=== PATIENT | male | born 2000 | race Caucasian/White ===

== ENCOUNTER 2019-02-07 21:13 | Emergency (ER) | payer MEDICAID ==
--- NOTE | 2019-02-07 22:22 | CRLCR ---
INDICATION: Thumb injury swelling and pain started 5 days ago TECHNIQUE: Hand radiograph 3 views right COMPARISON: None FINDINGS: Bone: No acute fractures or aggressive bone lesions are identified. Joint: The carpal and metacarpal-phalangeal joints are unremarkable in appearance. The interphalangeal joints are normal in appearance. Soft tissue: Unremarkable. No radiopaque foreign bodies are seen. IMPRESSION: 1. No acute osseous injuries or abnormalities are noted. Dictated by: Colt Zapien MD @ 02/07/2019 22:19:39 (Electronically Signed)
--- NOTE | 2019-02-07 22:50 | EDM.PDOC ---
ED HPI GENERAL MEDICAL PROBLEM - General Chief Complaint: Upper Extremity Injury/Pain Stated Complaint: HURT RIGHT THUMB Time Seen by Provider: 02/07/19 21:35 Source of Information: Reports: Patient, Family (mother at bedside and gives majority of history) History Limitations: Reports: No Limitations - History of Present Illness INITIAL COMMENTS - FREE TEXT/NARRATIVE: Alert 18-year-old male presents with his mother for evaluation of right thumb pain. Patient does not recall an injury. He has had increased swelling and pain with use of the right thumb. Mother presents with him at bedside states they've been icing wrapping and taking ibuprofen with continued swelling and discomfort. The symptoms started approximately 5 days ago. Patient does not recall any specific injury. Patient is left handed but has good use of right hand. He has increased pain with movement of the thumb. No lacerations or open wounds noted. 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 ED EXAM, GENERAL - Physical Exam Exam: See Below Exam Limited By: No Limitations General Appearance: Alert, WD/WN, No Apparent Distress Ears: Normal External Exam, Hearing Grossly Normal Nose: Normal Inspection Throat/Mouth: Normal Inspection Head: Normocephalic Neck: Normal Inspection, Full Range of Motion Respiratory/Chest: No Respiratory Distress Cardiovascular: Normal Peripheral Pulses Peripheral Pulses: 4+: Radial (R) GI/Abdominal: Normal Bowel Sounds Extremities: Normal Inspection, Normal Range of Motion, Non-Tender, No Pedal Edema, Normal Capillary Refill, Arm Pain (Right Hand swelling noted over thenar eminence with bruising and pain to palpation. Focal pain over first MCP joint. pain jm pincher grasping) Neurological: Alert, Oriented, CN II-XII Intact, Normal Cognition, Normal Gait Psychiatric: Normal Affect, Normal Mood, Flat Affect (mother answers most questions) Skin Exam: Warm, Dry Course - Vital Signs Last Recorded V/S: Last Vital Signs Temp 35.9 C 02/07/19 22:24 Pulse 76 02/07/19 22:24 Resp 16 02/07/19 22:24 BP 142/43 H 02/07/19 22:24 Pulse Ox 98 02/07/19 22:24 Departure - Departure Time of Disposition: 23:04 Disposition: Home, Self-Care 01 Clinical Impression: Strain of thumb, right - Discharge Information Instructions: Ulnar Collateral Ligament Injury of the Thumb, Thumb Sprain Referrals: PCP,None [Primary Care Provider] - Dwayne Garcia MD [Physician] - 1 Week (Call Orthopedic clinic on Saturday for follow-up appointment in 7-10 days for repeat evaluation if not improving. ) Forms: ED Department Discharge Additional Instructions: 1. Ice 15-20 minutes 3-4 times per day. 2. Leave splint in place at all times. Keep clean and dry. If removable, may remove to shower. 3. Ibuprofen 800mg every 6 hours with food for pain swelling and inflammation. 4. Call PCP for recheck in 1-2 weeks for splint removal and ensure improving. 5. Read thumb strain information (thenar strain collateral ligament injury information given. 6. Note for work written. You have no limitation using left hand. Right hand limitations of splint.
== END 2019-02-07 23:06 | disposition home or self-care (01) ==
LOC: JP.ED 21:13
DX: S66.011A Strain of long flexor muscle, fascia and tendon of right thumb at wrist and hand level, initial encounter (principal); F17.210 Nicotine dependence, cigarettes, uncomplicated; X58.XXXA Exposure to other specified factors, initial encounter
CPT/HCPCS: 29125; 73130-RT; 99283-25

== ENCOUNTER 2019-02-10 14:44 | Day surgery (SDC) | payer MEDICAID ==
[~2019-02-10 14:44] MED LIST: Bupivacaine 0.5% 50 ML MDV ONE
[2019-02-10] MEDS ORDERED: Lactated Ringers 1,000 ML IV SCH ×2 (15:45→17:45)
[2019-02-10] MEDS ORDERED: Propofol 200 MG/20 ML SDV ONE ×2 (16:06)
[2019-02-10] MEDS ORDERED: fentaNYL 100 MCG/2 ML SDV ONE ×2 (16:06→17:05)
[2019-02-10] MEDS ORDERED: Midazolam 1 MG/ML 2 ML SDV ONE (16:06)
[2019-02-10] MEDS ORDERED: ceFAZolin 2 GM in Premix Bag 1 BAG IV ONE (16:45)
[2019-02-10] MEDS ORDERED: Acetaminophen/HYDROcodone 325-5 MG Tab PO PRN (17:35)
[2019-02-10] MEDS ORDERED: Morphine 2 MG/ML Syringe IVPUSH PRN (17:36)
[2019-02-10] MEDS ORDERED: Acetaminophen 325 MG Tab PO PRN (17:37)
[2019-02-10] MEDS: Acetaminophen/oxyCODONE 325-5 MG Tab PO PRN ×2 (18:09→22:12)
[2019-02-10] MEDS ORDERED: ceFAZolin 1 GM Vial ONE (23:36)
[2019-02-10] MEDS ORDERED: Sodium Chloride 0.9% 50 ML ONE (23:37)
[2019-02-11] MEDS: ceFAZolin 1 GM in Premix Bag 1 BAG IV SCH ×3 (00:28→16:55)
[2019-02-11] MEDS: Acetaminophen/oxyCODONE 325-5 MG Tab PO PRN ×3 (05:13→14:38)
[2019-02-11] MEDS ORDERED: Diphtheria,Pertussis(Acell),Tetanus Vaccine 0.5 ML SDV IM ONE (10:00)
[2019-02-11] MEDS ORDERED: Cephalexin 250 MG Cap PO SCH (13:00)
--- NOTE | 2019-02-18 20:18 | OR ---
DATE OF PROCEDURE: 02/10/2019 PREOPERATIVE DIAGNOSIS: Infection thumb, right hand. POSTOPERATIVE DIAGNOSIS: Soft tissue infection over right thumb. PROCEDURE PERFORMED: Irrigation and debridement, right hand. ANESTHESIA: General. INDICATION: Kristian is a 18-year-old, who presented to the emergency room approximately 2 days ago with increasing right thumb pain. No injury was noted. He was placed into a splint and arrangement was made for followup. He has been having increasing pain in the splint. He is seen earlier today in the clinic due to the persistent pain. After removal of the splint, it was noted that he had significant redness and erythema in the palm aspect of his right hand near the MCP joint of the thumb. It is consistent with an infection of the right hand and possible infection of the MCP joint. Arrangements were made for surgery later the same day for irrigation and debridement. He is now admitted for that. Risks, benefits, potential complications were discussed with Kristian and his mother. DESCRIPTION OF PROCEDURE: After adequate anesthesia was obtained, right hand was prepped and draped in a sterile fashion. A longitudinal incision was made directly over the area of apparent abscess. It was carried down through the subcutaneous tissue. Immediately upon entering the subcutaneous tissue, grossly purulent material was present. This was expressed and cultured. This was then thoroughly irrigated. Minor debridement of subcutaneous tissue was performed with scissors. Blunt dissection carried out into the palm area where the abscess was tracking. This was thoroughly irrigated as well. Irrigated with a combination of initial normal saline and then Betadine diluted with saline. After all grossly purulent material was irrigated, the wound was further inspected. There was no evidence of tracking into the finger flexors. There was also no evidence of a sinus tracking down into the MCP joint. The wound was irrigated once again and then lightly packed with iodoform gauze. Sterile dressing was placed over this and then wrapped with gauze and Lloyd bandage. The patient tolerated the procedure well. There were no complications. He was taken from the operating room in a stable condition. Dwayne Garcia MD /[id number]
== END 2019-02-11 18:05 | disposition home or self-care (01) ==
LOC: JP.SDS 14:44 → JP.MS 17:50 → JP.SDS 02-11 18:05
PROVIDERS: ATTEND Specialist
DX: L02.511 Cutaneous abscess of right hand (principal); F17.200 Nicotine dependence, unspecified, uncomplicated
CPT/HCPCS: 26011; 36415; 80048; 85027; 87070; 87075; 87077; 87186; 87205; 90471; 90715; A9270; J0690; J2250; J2704; J3010; J3490; J7120

== ENCOUNTER 2021-07-25 18:10 | Emergency (ER) | payer MEDICAID ==
[2021-07-25] MEDS ORDERED: Famotidine 20 MG Tab PO ONE (19:59)
[2021-07-25] MEDS ORDERED: Ondansetron 4 MG Tab.DIS PO ONE (19:59)
[2021-07-25 21:17] LABS: CORONAVIRUS COVID-19 NAA NEGATIVE (NEGATIVE)
--- NOTE | 2021-07-25 21:43 | EDM.PDOC ---
ED HPI GENERAL MEDICAL PROBLEM - General Chief Complaint: Abdominal Pain Stated Complaint: ABD PAIN Time Seen by Provider: 07/25/21 19:18 Source of Information: Reports: Patient History Limitations: Reports: No Limitations - History of Present Illness INITIAL COMMENTS - FREE TEXT/NARRATIVE: Patient presents emergency room secondary to abdominal pain stomach pain x3 days. He reports that he is having diarrhea greater than 10 stools today have been present does have some nausea but denies any vomiting he also reports he has been having dry heaves. He states that he is dizzy when he is up but up and about but when he is sitting and still does not have any dizzy or lightheaded sensation he states that he is drank about 2 water bottles and up today has not been able to eat denies any UTI symptoms he does report having had a headache he says he has chills yesterday he had no fever today he did take his temperature and he states that it was normal. Patient also states that he took Pepto x1 today it did not really seem to help PMH/Meds--denies NKDA Tob--1/2 ppd EtOH--rare Drugs--denies Patient denies having had COVID nor has he had his COVID immunization Abdomen Pain Score (Numeric/FACES): 6 - Related Data Allergies Allergy/AdvReac Type Severity Reaction Status Date / Time No Known Allergies Allergy Verified 04/26/19 08:30 Home Meds: Home Meds NK [No Known Home Meds] 07/25/21 [History] Past Medical History - Past Health History Medical/Surgical History: Denies Medical/Surgical History HEENT History: Reports: Impaired Vision Cardiovascular History: Reports: None Respiratory History: Reports: None Gastrointestinal History: Reports: None Genitourinary History: Reports: None Musculoskeletal History: Reports: Fracture Other Musculoskeletal History: L distal fib Dx Ed 04/26/19 (occurred 04/25/19. right thumb pain Neurological History: Reports: None Psychiatric History: Reports: None Endocrine/Metabolic History: Reports: None Hematologic History: Reports: None Immunologic History: Reports: None Oncologic (Cancer) History: Reports: None Dermatologic History: Reports: None - Infectious Disease History Infectious Disease History: Reports: MRSA - Past Surgical History Head Surgeries/Procedures: Reports: None HEENT Surgical History: Reports: None Musculoskeletal Surgical History: Reports: None Social & Family History - Family History Family Medical History: No Pertinent Family History - Tobacco Use Tobacco Use Status *Q: Current Every Day Tobacco User Years of Tobacco use: 3 Packs/Tins Daily: 0.5 - Caffeine Use Caffeine Use: Reports: Soda - Recreational Drug Use Recreational Drug Use: No ED ROS GENERAL - Review of Systems Review Of Systems: Comprehensive ROS is negative, except as noted in HPI. Constitutional: Reports: Chills, Decreased Appetite GI/Abdominal: Reports: Abdominal Pain, Diarrhea, Decreased Appetite, Nausea. Denies: Vomiting : Reports: No Symptoms Neurological: Reports: Dizziness, Headache ED EXAM, GENERAL - Physical Exam Exam: See Below Exam Limited By: No Limitations General Appearance: Alert, WD/WN, No Apparent Distress Eye Exam: Bilateral Eye: EOMI, Normal Inspection, PERRL Ears: Normal External Exam, Hearing Grossly Normal Nose: Normal Inspection Throat/Mouth: Normal Inspection, Normal Oropharynx, Normal Voice, No Airway Compromise Head: Atraumatic, Normocephalic Neck: Normal Inspection, Supple, Non-Tender, Full Range of Motion Respiratory/Chest: No Respiratory Distress, Lungs Clear, Normal Breath Sounds, Chest Non-Tender Cardiovascular: Normal Peripheral Pulses, Regular Rate, Rhythm, No Edema, No Murmur Peripheral Pulses: 2+: Radial (L), Radial (R) GI/Abdominal: Normal Bowel Sounds, Soft, Non-Tender, No Distention (Male) Exam: Deferred Rectal (Males) Exam: Deferred Back Exam: Normal Inspection, Full Range of Motion Extremities: Normal Inspection, Normal Range of Motion, No Pedal Edema, Normal Capillary Refill Neurological: Alert, Oriented, Normal Cognition, No Motor/Sensory Deficits Psychiatric: Normal Affect, Normal Mood Skin Exam: Warm, Dry, Intact, Normal Color, No Rash Course - Vital Signs Text/Narrative:: Patient was offered labs as well as IV fluids and IV medication secondary to nausea dry heaves dizziness. At this time he declines he states that he would only like to have a Covid test and a work excuse. Provide patient with requested test and discharge home with appropriate work excuse based on findings Covid positive he will need to be home quarantine self-isolation for 10 to 14 days. Will provide Zofran for nausea for home use may use [id number] Imodium prior to diarrheal as needed encouraged increased fluids to include water or juice sports drinks of choice patient verbalized understanding agree with plan of care Laboratory Tests 07/25/21 20:31 Influenza Type A RNA Negative Influenza Type B RNA Negative SARS-CoV-2 RNA ([facility]) Negative Last Recorded V/S: Last Vital Signs Temp 98.2 F 07/25/21 19:16 Pulse 87 07/25/21 19:16 Resp 16 07/25/21 19:16 BP 138/87 07/25/21 19:16 Pulse Ox 96 07/25/21 19:16 - Orders/Labs/Meds Orders: Active Orders 24 hr Category Date Time Status Isolation [COMM] Stat Oth 07/25/21 19:59 Ordered Labs: Laboratory Tests 07/25/21 Range/Units 20:31 Influenza Type A RNA Negative (NEGATIVE) Influenza Type B RNA Negative (NEGATIVE) SARS-CoV-2 RNA ([facility]) Negative (NEGATIVE) Meds: Medications Discontinued Medications Generic Name Dose Route Start Last Admin Trade Name Freq PRN Reason Stop Dose Admin Famotidine 40 mg 07/25/21 19:59 07/25/21 20:31 Famotidine 20 Mg Tab PO 07/25/21 20:00 40 mg ONETIME ONE Administration Ondansetron HCl 8 mg 07/25/21 19:59 07/25/21 20:30 Ondansetron 4 Mg Tab.Dis PO 07/25/21 20:00 8 mg ONETIME ONE Administration Departure - Departure Time of Disposition: 21:43 Disposition: Home, Self-Care 01 Condition: Good Clinical Impression: Gastroenteritis, Diarrhea - Discharge Information *PRESCRIPTION DRUG MONITORING PROGRAM REVIEWED*: Not Applicable *COPY OF PRESCRIPTION DRUG MONITORING REPORT IN PATIENT RAY: Not Applicable Instructions: Viral Gastroenteritis, Adult, [id number], Nausea and Vomiting, Adult, [id number], Food Choices to Help Relieve Diarrhea, Adult, Diarrhea, Adult, [id number] Referrals: PCP,None [Primary Care Provider] - Additional Instructions: As discussed it is recommended that you increase your fluid intake to include water, juice, sports drinks of choice (this is Powerade Gatorade body armor coconut water): 6-8 bottles a day especially in light of your reported diarrhea stools greater than 10. May also use Jell-O popsicles and soups to help increase your fluid intake. When you are feeling better start with a bland diet to include banana rice applesauce toast plain noodles plain baked chicken and increase as tolerated to return to your normal diet You may use obus-dpn-[id number] medications such as acetaminophen (Tylenol) for any headache discomfort fevers chills. He continued to have diarrhea episodes he may use [id number] antidiarrheal products as per label. I provided you prescription for ondansetron (Zofran) which you may obtain from the [facility] for any nausea or vomiting to help settle your stomach so that you may increase your oral intake If you continue to have symptoms of concern follow-up with your primary care provider in the clinic in the next 3 to 5 days Your Covid and influenza test are negative I have provided you with a work excuse for the next 3 days you may return to work on 27 July unless you are continued to have symptoms at that time you will need to obtain further work excuse from your primary care provider Sepsis Event Note (ED) - Evaluation Sepsis Screening Result: No Definite Risk - Focused Exam Vital Signs: Vital Signs Temp Pulse Resp BP Pulse Ox 07/25/21 19:16 98.2 F 87 16 138/87 96 07/25/21 18:26 98.2 F 87 16 138/87 96 - My Orders Last 24 Hours: My Active Orders 07/25/21 19:59 Isolation [COMM] Stat - Assessment/Plan Last 24 Hours: My Active Orders 07/25/21 19:59 Isolation [COMM] Stat
== END 2021-07-25 21:51 | disposition home or self-care (01) ==
LOC: JP.ED 18:10
DX: K52.9 Noninfective gastroenteritis and colitis, unspecified (principal); F17.210 Nicotine dependence, cigarettes, uncomplicated; Z20.822 Contact with and (suspected) exposure to COVID-19
CPT/HCPCS: 0240U; 99284; A9270

== ENCOUNTER 2024-02-20 17:26 | Emergency (ER) | payer MEDICAID, OTHER | END 2024-02-20 19:00 | disposition home or self-care (01) | LOC: JP.ED 17:26 | DX: S93.601A Unspecified sprain of right foot, initial encounter (principal); S40.011A Contusion of right shoulder, initial encounter; F17.210 Nicotine dependence, cigarettes, uncomplicated; V87.8XXA Person injured in other specified noncollision transport accidents involving motor vehicle (traffic), initial encounter; Y92.410 Unspecified street and highway as the place of occurrence of the external cause | CPT/HCPCS: 73030-26-RT; 73030-RT; 73630-26-LT; 73630-LT; 99283 ==

== ENCOUNTER 2024-12-10 21:02 | Emergency (ER) | payer SELFPAY | END 2024-12-10 21:33 | disposition home or self-care (01) | LOC: JP.ED 21:02 | DX: K04.7 Periapical abscess without sinus (principal); F17.210 Nicotine dependence, cigarettes, uncomplicated | CPT/HCPCS: 99282 ==